=== PATIENT | female | born 1985 | race Caucasian/White ===

== ENCOUNTER 2016-11-29 17:21 | Emergency (ER) | payer BC ==
--- NOTE | 2016-11-29 17:42 | ER Document Report ---
ED Medical Screen (RME) - General Stated Complaint: LEFT HAND INJURY Mode of Arrival: Ambulatory Information source: Patient Notes: Patient presents emergency department with laceration to her pulmonary her left hand inbetween 3rd and 4th finger. Tip of ring finger number, brisk cap refill. I have greeted and performed a rapid initial assessment of this patient. A comprehensive ED assessment and evaluation of the patient, analysis of test results and completion of the medical decision making process will be conducted by additional ED providers. Physical Exam - Vital signs Vitals: Temp Pulse Resp BP Pulse Ox 98.2 F 89 20 121/68 100 11/29/16 17:37 11/29/16 17:37 11/29/16 17:37 11/29/16 17:37 11/29/16 17:37 Course - Vital Signs Vital signs: Temp Pulse Resp BP Pulse Ox 98.2 F 89 20 121/68 100 11/29/16 17:37 11/29/16 17:37 11/29/16 17:37 11/29/16 17:37 11/29/16 17:37
[2016-11-29] MEDS ORDERED: OXYCODONE-ACETAMINOPHEN 5-325 MG TABLET PO ONE ×2 (17:43→23:49)
[2016-11-29] MEDS ORDERED: DIPH/PERTUSS(ACELL)/TETANUS VAC/PF 0.5 ML SYR (>=10YO) IM ONE (17:43)
[2016-11-29] MEDS ORDERED: LIDOCAINE 1% INJ-PF (10 MG/ML) 30 ML SDV INJ ONE (23:49)
[2016-11-30] MEDS ORDERED: CEPHALEXIN 500 MG CAPSULE PO ONE (01:14)
--- NOTE | 2016-11-30 01:19 | ER Document Report ---
ED Wound - General Chief Complaint: Laceration Stated Complaint: LEFT HAND INJURY Mode of Arrival: Ambulatory Information source: Patient Notes: 31-year-old female presents to the emergency department complaining of laceration to left hand. Patient reports was cutting vegetables with cooking knife when she accidentally lacerated her left hand in the interdigital area between third and fourth fingers. Reports slight tingling to tip of fourth finger. Denies numbness, weakness, or color changes. States unknown last tetanus vaccination. TRAVEL OUTSIDE OF THE [place] IN LAST 30 DAYS: No - HPI Patient complains to provider of: Laceration Occurred: This evening Onset/Duration: Sudden Quality of pain: Achy Severity: Mild Pain Level: 3 Context: Injury, Spontaneous Skin Temperature: Warm Skin Color: Normal, [place] Capillary refill: < 3 seconds Sensations intact: Yes Distal pulses present: Yes Associated Symptoms: None - Related Data Allergies/Adverse Reactions: hydromorphone [From Dilaudid] Allergy (Verified 11/29/16 17:43) Penicillins Allergy (Verified 11/29/16 17:43) Past Medical History - General Information source: Patient - Social History Smoking Status: Never Smoker Chew tobacco use (# tins/day): No Frequency of alcohol use: Occasional Drug Abuse: None Lives with: Family Family History: Reviewed & Not Pertinent Patient has suicidal ideation: No Patient has homicidal ideation: No - Medical History Medical History: Negative Renal/ Medical History: Denies: Hx Peritoneal Dialysis Surgical Hx: Negative - Immunizations Hx Diphtheria, Pertussis, Tetanus Vaccination: Yes - 11/30/16 Review of Systems - Review of Systems Constitutional: No symptoms reported EENT: No symptoms reported Cardiovascular: No symptoms reported Respiratory: No symptoms reported Gastrointestinal: No symptoms reported Genitourinary: No symptoms reported Female Genitourinary: No symptoms reported Musculoskeletal: See HPI Skin: See HPI Hematologic/Lymphatic: No symptoms reported Neurological/Psychological: No symptoms reported -: Yes All other systems reviewed and negative Physical Exam - Vital signs Vitals: Temp Pulse Resp BP Pulse Ox 98.2 F 89 20 121/68 100 11/29/16 17:37 11/29/16 17:37 11/29/16 17:37 11/29/16 17:37 11/29/16 17:37 - General General appearance: Appears well, Alert In distress: None - Respiratory Respiratory status: No respiratory distress Chest status: Nontender Breath sounds: Normal Chest palpation: Normal - Cardiovascular Rhythm: Regular Heart sounds: Normal auscultation Murmur: No Pulses: Normal: Radial Normal capillary refill: Yes - Extremities General upper extremity: Normal inspection, Nontender, Normal color, Normal ROM , Normal strength, Normal temperature. No: Tender, Edema General lower extremity: Normal inspection, Nontender, Normal color, Normal ROM , Normal strength, Normal temperature, Normal weight bearing. No: Tender, Edema Hand: Laceration - Approximately 3 cm linear laceration to interdigital area between third and fourth left fingers. Patient complains of tingling to the distal tip of fourth finger however close and fine sensation is intact. Motor and vascular function is also intact with immediate capillary refill and full active, passive, and against resistance range of motion., No evidence of FB. No : Deformity, Instability, Swelling, Tendon deficit - Neurological Neuro grossly intact: Yes Cognition: Normal Orientation: AAOx4 Gilby Coma Scale Eye Opening: Spontaneous Marlon Coma Scale Verbal: Oriented Gil[place] Coma Scale Motor: Obeys Commands Marlon Coma Scale Total: 15 Speech: Normal Motor strength normal: LUE, RUE, LLE, RLE Sensory: Normal - Skin Skin Temperature: Warm Skin Moisture: Dry Skin Color: Normal Course - Re-evaluation Re-evalutation: 11/30/16 01:19 Patient hemodynamically stable, in no distress. X-rays negative for osseous injury or foreign body. Tdap updated. Laceration thoroughly irrigated and wound edges approximated with interrupted nylon sutures. Patient tolerated well. Motor and neurovascular function appears intact at this time however patient will be given contact information for hand surgeon should she have numbness, tingling, or weakness. Pt appears stable for discharge and agrees with home care, follow-up, and ED return precautions. - Vital Signs Vital signs: Temp Pulse Resp BP Pulse Ox 98.2 F 78 18 123/66 98 11/29/16 17:37 11/30/16 01:38 11/30/16 01:38 11/30/16 01:38 11/30/16 01:38 - Diagnostic Test Radiology reviewed: Image reviewed, Reports reviewed Procedures - Laceration/Wound Repair Left Hand Time completed: 00:35 Wound length (cm): 3 Wound's Depth, Shape: Linear Laceration pre-procedure: Sterile PPE donned, Sterile drapes applied, Shur- Clens applied Anesthetic type: 1% Lidocaine Volume Anesthetic (mLs): 5 Wound explored: Clean, No foreign body removed Irrigated w/ Saline (mLs): 1,000 - NS with chlorhexidine Wound Debrided: Minimal Wound Repaired With: Sutures Suture Size/Type: 4:0, Nylon Number of Sutures: 6 Layer Closure?: No Post-procedure wound care: Sterile dressing applied - with bacitracin ointment Post-procedure NV exam normal: Yes Complications: No Hands front picture: 1 - laceration Discharge - Discharge Clinical Impression: Hand laceration Qualifiers: Encounter type: initial encounter Foreign body presence: without foreign body Laterality: left Qualified Code(s): S61.412A - Laceration without foreign body of left hand, initial encounter Condition: Stable Disposition: HOME, SELF-CARE Instructions: Hand Laceration ([facility]), Elevate the Injury ([facility]), Prophylactic Antibiotic ([facility]), Cephalexin ([facility]), Oral Narcotic Medication ([facility]), Use of Over- The-Counter Ibuprofen ([facility]), Tetanus Immunization Given ([facility]) Additional Instructions: FOLLOW-UP CARE: Your sutures should be removed in 7 to 10 days. To facilitate a timely removal of your sutures, you may return to the Emergency Department at [facility]. You do not need to call for an appointment, but the best time to come in for suture removal is early in the morning. If you have been referred to another physician for follow-up care, call that physicians office for an appointment as you were instructed. If you experience a significant change in your laceration, or if you are concerned there may be an infection (swelling, redness, drainage, increasing tenderness, red streaks, tender lumps in the armpit or groin above the laceration, or fever) , return to the Emergency Department immediately re-evaluation. Prescriptions: Oxycodone HCl/Acetaminophen [Percocet 5-325 mg Tablet] 1 tab PO Q6HP PRN #6 tablet PRN Reason: Cephalexin Monohydrate [Keflex 500 mg Capsule] 500 mg PO BID 5 Days Forms: Return to Work Referrals: MARGARITA BENSON, [ACTIVE STAFF] - Follow up as needed
[2016-11-30] MEDS ORDERED: ONDANSETRON ODT 4 MG TAB (6 TAB/DSPK) PO PRN (01:30)
[2016-11-30 01:38] VITALS: BP 123/66
== END 2016-11-30 01:38 | disposition home or self-care (01) ==
LOC: ER 17:21
PROC: 0HQGXZZ Repair Left Hand Skin, External Approach (ICD-10-PCS; principal; 2016-11-29)
DX: S61.412A Laceration without foreign body of left hand, initial encounter (principal); W26.0XXA Contact with knife, initial encounter; Y93.G9 Activity, other involving cooking and grilling; R20.2 Paresthesia of skin; Z88.0 Allergy status to penicillin; Z88.5 Allergy status to narcotic agent
CPT/HCPCS: 99283; 90471; 73130; 90715; 12002; J3490